=== PATIENT | female | born 1950 | race Caucasian/White ===

== ENCOUNTER 2024-09-20 21:45 | Emergency (ER) | payer MEDICARE, OTHER, SELFPAY ==
[2024-09-20] VITALS (12 sets, daily range): BP systolic 146–189; BP diastolic 75–91; PULSE 67–83; RESP 12–24; TEMP 36.6–36.8; O2SAT 96–100
--- NOTE | ~2024-09-20 | XR_ITS ---
EXAMINATION: XR chest 1V portable DATE: 09/20/2024 22:45 INDICATION: Chest pain. Hypertension. TECHNIQUE: frontal view of the chest was obtained. COMPARISON: Chest radiograph dated 03/29/05 FINDINGS: The lungs are clear with no focal airspace opacities, pulmonary edema, pleural effusion or pneumothor ax. The cardiomediastinal silhouette is normal. Cholecystectomy clips in right upper quadrant. IMPRESSION: 1. No acute cardiopulmonary disease. Reviewed, dictated and finalized at location A. 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
--- NOTE | 2024-09-20 22:28 | ECG_ITS ---
Test Date: 2024-09-20 22:47:19 Measurements Intervals [place] Rate: 70 P: 52 VT: 148 QRS: 2 QRSD: 92 T: 14 QT: 388 QTc: 419 Interpretive Statements SINUS RHYTHM WITH OCCASIONAL SUPRAVENTRICULAR PREMATURE COMPLEXES INCOMPLETE RIGHT BUNDLE BRANCH BLOCK [90+ ms QRS DURATION, TERMINAL R IN V1/V2, 40+ ms S IN I/aVL/V4/V5/V6] MINIMAL VOLTAGE CRITERIA FOR LVH, CONSIDER NORMAL VARIANT [MEETS CRITERIA IN ONE OF: R(aVL), S(V1), R(V5), R(V5/V6)+S(V1)] SEPTAL MYOCARDIAL INFARCTION , OF INDETERMINATE AGE [40+ ms Q WAVE IN V1/V2] MODERATE T-WAVE ABNORMALITY, CONSIDER ANTEROLATERAL ISCHEMIA [-0.1+ mV T WAVE IN V3-V6] ABNORMAL ECG Electronically Signed On 09-21-2024 09:01:21 [employer]ACHINE [employer]OL [employer]TER by Rai Cruz M.D.
--- NOTE | 2024-09-20 22:28 | ED_ITS ---
HPI - Recheck/Abnormal Lab/Rx General Chief Complaint: Recheck/Abnormal Lab/Rx Stated Complaint: HTN Time Seen by Provider: 09/20/24 21:57 Source: patient Mode of arrival: ambulatory Limitations: no limitations History of Present Illness HPI narrative: This is a 73-year-old female who presents to the ED for chief complaint of elevated blood pressures today. States that she has not been feeling right and wanted to check her blood pressure. She was started to have headache and noticed that her pressure was in the 160s over 80s. She states that she continue to check her blood pressure throughout the day. She noticed that it was increasing so she continue to take it more frequently. States that when she is always greater than 180/90 she looked it up on [employer] and thought she needed to present to the ER emergently. States she has had some discomfort in her chest throughout the day but no real pain. Denies shortness of breath, vision change, numbness, weakness. Denies worst headache of her life or sudden onset headache. Related Data Allergies Allergy/AdvReac Type Severity Reaction Status Date / Time morphine AdvReac Mild Itching Verified 09/20/24 22:01 tramadol AdvReac Mild Itching Verified 09/20/24 22:01 Review of Systems 2 Review of Systems: All systems as dictated in HPI Exam 2 Narrative: GENERAL: Well-appearing, well-nourished, and in no acute distress. HEAD: Normocephalic, atraumatic. EYES: PERRLA and EOMI. ENT: Nares clear, no rhinorrhea or epistaxis. Mucous membranes moist. Oropharynx without tonsillar hypertrophy exudate or other lesions. NECK: Supple. No adenopathy or masses. CHEST: No respiratory distress. Clear to auscultation. No wheezes rales or rhonchi HEART: Regular rate and rhythm. No murmur heard. Normal peripheral pulses. ABDOMEN: Soft, nontender, nondistended, normal active bowel sounds. MSK: Normal range of motion. No edema. SKIN: Warm, dry, no rash. NEURO: Alert and oriented x4. No focal deficits. PSYCH: Normal mood and affect. Course Vital Signs Vital signs: Vital Signs Temperature 97.9 F 09/20/24 21:50 Pulse Rate 80 09/20/24 21:50 Respiratory Rate 16 09/20/24 21:50 Blood Pressure 178/82 H 09/20/24 21:50 Pulse Oximetry 99 09/20/24 21:50 Oxygen Delivery Room Air 09/20/24 21:50 Temperature 98.3 F 09/20/24 21:59 Pulse Rate 67 09/21/24 00:13 Respiratory Rate 15 09/21/24 00:13 Blood Pressure 140/76 09/21/24 00:13 Pulse Oximetry 97 09/21/24 00:13 Oxygen Delivery Room Air 09/20/24 21:59 MDM - Recheck/Abnormal Lab/Rx MDM Narrative Medical decision making narrative: This is a 73-year-old female who presents to the ED for chief complaint of elevated blood pressures at home today. Vitals show elevated blood pressure but otherwise normal. Exam is benign. Lab work lab work is grossly unremarkable. Chest x-ray shows no fluid overload. Troponin is normal. EKG shows sinus rhythm. Presentation consistent with headache and asymptomatic hypertension. She has improved on re-evaluation. She was given Tylenol and 5 mg dose of hydralazine. Vitals are now normal. Patient will be discharged in stable condition. Supportive measures discussed and return precautions given. Patient is understanding and agreeable with plan for discharge with PCP follow-up. Lab Data 09/20/24 23:01 09/20/24 23:01 Labs: Lab Results 09/20/24 Range/Units 23:01 WBC 8.0 (4.5-10.0) K/mm3 RBC 4.24 (4.2-5.4) M/mm3 Hgb 13.7 (12.0-15.0) g/dL Hct 39.0 (37.0-47.0) % MCV 92.0 (80-100) fl MCH 32.3 (26-34) pg MCHC 35.1 (32-36) g/dl RDW 11.9 (11.5-14.5) % Plt Count 256 (150-375) k/mm3 MPV 10.8 H (7.4-10.4) fl Immature Gran % (Auto) 0.3 (0-0.5) % Neut % (Auto) 56.0 (45.5-73.1) % Lymph % (Auto) 33.4 (18.3-44.2) % Mcpherson % (Auto) 8.3 (2.6-8.5) % Eos % (Auto) 1.5 (0-4.4) % Baso % (Auto) 0.5 (0.2-1.2) % Lymph # (Auto) 2.67 (0.9-3.2) K/mm3 Mcpherson # (Auto) 0.7 H (0.1-0.6) K/mm3 Eos # (Auto) 0.1 (0-0.3) K/mm3 Baso # (Auto) 0.0 (0.0-0.1) K/mm3 Abs Immat Gran (auto) 0.02 (0.00-0.031) K/mm3 Absolute Neuts (auto) 4.5 (1.3-6.7) K/mm3 Absolute Nucleated RBC 0.000 (0.0-0.012) K/mm3 Nucleated RBC % 0.0 (0.0-0.2) % Sodium 137 (137-145) mmol/L Potassium 3.4 (3.4-5.0) mmol/L Chloride 107 (98-107) mmol/L Carbon Dioxide 27 (22-30) mmol/L Anion Gap 3 L (4-12) mmol/L BUN 18 H (7-17) mg/dL Creatinine 0.60 L (0.7-1.0) mg/dL Estim Creat Clear Calc 64 ml/min Estimated GFR > 60 (59 - ) Glucose 99 (65-110) mg/dL Calcium 9.3 (8.4-10.2) mg/dL Troponin I < 0.012 (0.000-0.034) ng/mL ECG Data EKG #1: ECG completion date: 09/20/24 ECG completion time: 22:47 Prior ECG tracings: not available for review Interpretation: Sinus rhythm Rate 70 Normal QTC No STEMI Discharge Plan Discharge Clinical Impression: Asymptomatic hypertension Patient Disposition: Home, Self-Care Condition: Stable Instructions: Antibiotic Form Additional Instructions: Your evaluated today for elevated blood pressures. Your exam and workup today are reassuring overall. No signs of emergent hypertension today. Please follow-up with your doctor regarding blood pressure medication dosing. If you have any new or worsening symptoms please return to the ER for further evaluation. Patient Language: Serbian Follow-up/Referrals: PHYSICIAN NOT ON STAFF,NONSTAFF [Primary Care Provider] - Time of Disposition: 23:36
[2024-09-20] MEDS: ACETAMINOPHEN 500 MG TABLET 1000 MG PO (22:35)
[2024-09-20] MEDS: hydrALAZINE 5 MG TABLET PO (22:42)
[2024-09-20 23:13] LABS: Basophils Percent Auto 0.5 % (0.2-1.2); Eosinophils Absolute Auto 0.1 K/mm3 (0-0.3); Eosinophils Percent Auto 1.5 % (0-4.4); Hemoglobin 13.7 g/dL (12.0-15.0); Immature Granulocyte Absolute 0.02 K/mm3 (0.00-0.031); Immature Granulocyte Percent A 0.3 % (0-0.5); Lymphocytes Absolute Auto 2.67 K/mm3 (0.9-3.2); Lymphocytes Percent Auto 33.4 % (18.3-44.2); Mean Corpuscular HGB Conc 35.1 g/dl (32-36); Mean Corpuscular Hemoglobin 32.3 pg (26-34); Mean Platelet Volume 10.8 fl (7.4-10.4); Monocytes Absolute Auto 0.7 K/mm3 (0.1-0.6); Monocytes Percent Auto 8.3 % (2.6-8.5); Neutrophils Absolute Auto 4.5 K/mm3 (1.3-6.7); Platelet Count Result 256 k/mm3 (150-375); Red Blood Count 4.24 M/mm3 (4.2-5.4); Red Cell Distribution Width 11.9 % (11.5-14.5)
[2024-09-20 23:24] LABS: Anion Gap 3 mmol/L (4-12); Blood Urea Nitrogen 18 mg/dL (7-17); Calcium 9.3 mg/dL (8.4-10.2); Carbon Dioxide 27 mmol/L (22-30); Chloride 107 mmol/L (98-107); Estimated CRCL calculation 64 ml/min; Estimated Glomerular Filt Rate > 60; Glucose 99 mg/dL (65-110); Potassium 3.4 mmol/L (3.4-5.0); Sodium 137 mmol/L (137-145)
[2024-09-20 23:34] LABS: Troponin I < 0.012 ng/mL (0.000-0.034)
[2024-09-21 00:13] VITALS: BP 140/76; PULSE 67; RESP 15; O2SAT 97
== END 2024-09-21 00:14 | disposition home or self-care (01) ==
PROVIDERS: Emergency Provider Physician Assistant
DX: I10 Essential (primary) hypertension (principal); I49.1 Atrial premature depolarization; I45.10 Unspecified right bundle-branch block; R94.31 Abnormal electrocardiogram [ECG] [EKG]
CPT/HCPCS: 36415; 71045; 80048; 84484; 85025; 93005; 99284; A9270